=== PATIENT | female | born 1930 | race Caucasian/White ===

== ENCOUNTER 2016-11-15 13:01 | Inpatient (IN) ==
--- NOTE | 2016-11-15 13:26 | Emergency Department Note ---
Arrival - Arrival Chief Complaint: Fall Stated Complaint: FALL ED Nursing Triage Note: PT STATES TRIED TO SIT IN CHAIR-SLIPPED AND FELL TO FLOOR-PT STATES "I FELT LIKE I WAS ABOUT TO PASS OUT" STATES HAD SILILAR EPISODE WITHOUT FALLING LAST NIGHT-DENIES [id number] PRIOR TO FALL -DENIES PAIN-BRYANT'S-SPEECH CLEAR-A/OX3 Mode of Arrival: Stretcher Limitations: No Limitations Source: Patient, EMS, RN Notes Reviewed Time Seen by Provider: 11/15/16 13:06 - History of Present Illness HPI Narrative: History of Present Illness 86-year-old white female presents to ED with: Chief Complaint: "Blacked out" 3, twice last night and one time this a.m., Syncopal episode this a.m. resulted in a fall, so she came to the ER Onset (ago): Just prior to arrival Duration of Episode: "Not long" Prodromal Symptoms: none Witnessed: yes - by son Context: Just stood up, has not had anything to eat or drink today Injuries Sustained Associated with Event: none Current Symptoms: none, back to baseline History: Previous medical history nonsignificant Treatments prior to arrival: none Allergies/Adverse Reactions: Allergies Allergy/AdvReac Type Severity Reaction Status Date / Time No Known Allergies Allergy Unverified 11/15/16 13:17 Home Medications: Home Medications Medication Instructions Recorded Confirmed Type No Known Home Medications [No 11/15/16 11/15/16 History Known Home Medications] Review of System - Review of System 12 point system: reviewed and no additional remarkable complaints except as stated - Review of System Cardiovascular: Absent: chest pain, palpitations, dyspnea on exertion, orthopnea , edema Musculoskeletal: Present: arm pain (Chronic), leg pain (Chronic knee pain) Neurological: Present: as per HPI Medical,Surgical,& Family Hx - Medical History Medical History: noncontributory - Surgical History Reproductive Surgeries: Surgical HX of;: Hysterectomy Exam Physical Examination: - General General appearance: alert, in no apparent distress - Head Head exam: Present: atraumatic, normocephalic, normal inspection - Eye Eye exam: Present: right eye midline, left eye deviated laterally, pt states this is normal for her since eye surgery, PERRL, EOMI. Absent: nystagmus, periorbital swelling, periorbital tenderness - ENT ENT exam: Present: normal exam - Neck Neck exam: Present: normal inspection, full ROM, no tenderness to palpation. Absent: meningismus - Chest Chest inspection: Present: normal inspection, symmetric chest wall rise - Respiratory Respiratory exam: Present: normal lung sounds bilaterally. Absent: rales, rhonchi, wheezes - Cardiovascular Cardiovascular exam: Present: regular rate, normal rhythm, normal heart sounds - Abdominal Exam Abdominal exam: Present: soft, normal bowel sounds - Extremities Exam Extremities exam: Present: normal inspection, full ROM - Back Exam Back exam: Present: normal inspection, full ROM - Neurological Exam Neurological exam: Present: alert, oriented X3, CN II-XII intact, normal gait. Absent: motor sensory deficit, reflexes normal - Expanded Neurological Exam Patient oriented to: Present: person, place, time Cranial nerves: EOM function (II, III, IV, ): Normal, facial sensation (V): Normal, facial palsy (VII): Normal, spinal accessory function (XI): Normal, tongue deviation (XII): Normal Cerebellar function: finger to nose: Normal, heel to roy: Normal Cerebellar function: normal gait Motor strength - LUE: 5/5 Motor strength - RUE: 5/5 Motor strength - LLE: 5/5 Motor strength - RLE: 5/5 Upper motor neuron exam: kathia neglect: Absent bilaterally Sensory exam upper extremity: light touch: Normal Sensory exam lower extremity: light touch: Normal DTR: brachioradialis (L): 2+, brachioradialis (R): 2+, patellar (L): 2+, patellar (R): 2+ Spinal cord function: Absent: saddle anesthesia - Psychiatric Psychiatric exam: Present: normal affect, normal mood - Skin Skin exam: Present: warm, dry, intact, jaundice noted Vital Signs: Vital Signs Temperature 99.2 F 11/15/16 22:58 Pulse Rate 76 11/15/16 22:54 Respiratory Rate 18 11/15/16 22:58 Blood Pressure 112/56 11/15/16 22:58 O2 Sat by Pulse Oximetry 100 11/15/16 18:44 Course Course Narrative: Orthostatic vital signs: Lying: - Consultations Time: 15:10 (Hospitalist service notified of pt presence and status. Will come to admit patient.) Time: 15:30 (Dr. Hyatt here. Will admit patient.) Results - Labs CBC & BMP: 11/15/16 13:57 11/15/16 13:57 Lab Results: I have reviewed the patients labs Labs: Laboratory Tests 11/15/16 11/15/16 13:57 13:57 Total Bilirubin < 0.39 Direct Bilirubin < 0.10 Indirect Bilirubin 0.3 AST 11 ALT 17 Alkaline Phosphatase 60 Troponin I < 0.015 Total Protein 6.1 L Albumin 3.1 L Laboratory Tests 11/15/16 13:57 Urine Color Yellow Urine Appearance Clear Urine pH 5.0 Ur Specific [place] 1.011 Urine Protein Negative Urine Glucose (UA) Negative Urine Ketones Negative Urine Blood Moderate Urine Nitrate Positive H Urine Bilirubin Negative Urine Urobilinogen < 2.0 H Urine Leukocytes Negative Urine WBC 4 Ur Squamous Epith Cells Occasional Amorphous Crystals Occasional Ur Culture Indicated? Results to follow Laboratory Tests 11/15/16 11/15/16 13:57 13:57 Urine Opiates Screen Negative Ur Barbiturates Screen Negative Ur Phencyclidine Scrn Negative U Amphetamine/Methamph Negative U Benzodiazepines Scrn Negative U Cocaine Metab Screen Negative U Cannabinoids Screen Negative Serum Alcohol < 15 L Disposition Clinical Impression: Syncope, Anemia Case discussed with: patient, patient's family Disposition: Still a Patient Time of Disposition: 15:30
--- NOTE | 2016-11-15 13:52 | XRay Report ---
History: Shortness of breath Date: 11/15/2016 Study: Chest x-ray PA and lateral Comparison exam: No previous chest x-ray available The cardiac silhouette is not enlarged. There is no mediastinal mass. There is mild aortic arch calcification. The pulmonary vasculature is not engorged. The lungs are slightly hyperexpanded. There is no acute infiltrate. There are scattered emphysematous changes. There is no pleural effusion. There is osteopenia and mild to moderate thoracic spondylosis. There is moderate hypertrophic degenerative change of either glenohumeral joint. Impression: The lungs are slightly hyperexpanded as can be seen with COPD. No acute process otherwise PROCEDURE INTERPRETED AT [facility] DEPARTMENT OF RADIOLOGY Final Report Signed by: Dr. Janiya Estrada
--- NOTE | 2016-11-15 13:57 | CT Report ---
History: Syncope Date: 11/15/2016 Study: CT head without contrast Comparison exam: No previous similar study available Transaxial CT sections were obtained through the head without IV contrast. This CT exam was performed using one or more the following dose reduction techniques: Automated exposure control, adjustment of the MA and/or KV according to patient size, or use of iterative reconstruction technique. The ventricles are midline in position without evidence of hydrocephalus. There is no mass or parenchymal hemorrhage. There is a moderate amount of patchy ill-defined decreased density in the periventricular white matter without mass effect compatible with changes of small vessel disease. There is no gross CT evidence of acute cortical stroke. There is no extra-axial hematoma. The partially visualized paranasal sinuses and mastoid air cells are clear. There is a small superior rounded bony protuberance from the floor of the left anterior cranial fossa at 7 mm diameter, compatible with small benign osteoma or heavily ossified meningioma. There is no acute abnormality of the calvarium. The partially visualized mastoid air cells and paranasal sinuses are clear. Impression: No acute intracranial process. 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 Janiya Estrada
[2016-11-15 14:04] LABS: Basophils # 0.1 10*3/uL (0.0-0.2); Basophils % 0.4 % (0.0-0.8); Eosinophils # 0.1 10*3/uL (0.0-0.87); Hematocrit 22.2 VOL% (35.7-47.0); Hemoglobin 7.2 GM/DL (12.0-16.0); Immature Granulocytes % 0.6 %; Immature Granulocytes Absolute 0.08 #; Lymphocytes # 2.8 10*3/uL (1.4-4.0); Lymphocytes % 20.9 % (21.3-54.2); Mean Corpuscular HGB Conc 32.4 GM/DL (32-36); Mean Corpuscular Hemoglobin 33 PG (27-34); Mean Corpuscular Volume 101.8 FL (87-102); Mean Platelet Volume 9.4 FL (9.6-12.0); Monocytes # 0.7 10*3/uL (0.11-0.8); Monocytes % 4.9 % (1.7-12.7); Neutrophils # 9.8 10*3/uL (1.4-7.4); Neutrophils % 72.2 % (38.7-73.9); Platelet Count 278 T/CUMM (130-400); Red Blood Count 2.18 MC/CUMM (3.8-5.5); Red Cell Distribution Width 13.4 % (9.3-17.3); White Blood Count 13.6 T/CUMM (4-12)
[2016-11-15 14:16] LABS: Amorphous Crystals,Urine Occasional /HPF (Few); Apearance,Urine CLEAR (Clear); Bilirubin,Urine Negative (Negative); Blood, Urine Moderate mg/dL (Negative); Glucose,Urine (UA) Negative (Negative); Ketones,Urine Negative (Negative); Nitrite,Urine Positive (Negative); Protein,Urine Negative; Squamous Epithelial Cell,Urine Occasional /HPF (0-10); Urine Color Yellow (Yellow); Urine Specific Gravity 1.011 (1.001-1.035); Urine Urobilinogen < 2.0 EU/DL (0.2-1.0); WBC,Urine 4 /HPF (0-6)
[2016-11-15 14:27] LABS: Alanine Aminotransferase 17 U/L (13-56); Albumin 3.1 G/DL (3.4-5.0); Alkaline Phosphatase 60 U/L (45-117); Aspartate Amino Transferase 11 U/L (0-37); Bilirubin,Direct < 0.10 MG/DL (0.0-0.20); Bilirubin,Indirect 0.3 MG/DL (0.0-1.0); Bilirubin,Total < 0.39 MG/DL (0.2-1.0); Total Protein 6.1 G/DL (6.4-8.3)
[2016-11-15 14:32] LABS: Barbiturates Screen,Urine Negative (Negative); Benzodiazepines Screen,Urine Negative (Negative); Cannabinoid Screen,Urine Negative (Negative); Opiate Screen,Urine Negative (Negative); Phencyclidine Screen,Urine Negative (Negative)
[2016-11-15 14:34] LABS: Blood Urea Nitrogen 56 MG/DL (7-18); Calcium 9.9 MG/DL (8.5-10.1); Glucose 135 MG/DL (74-106); Osmolality,Calculated 298.3 MOS/KG (273-304); Potassium 4.2 MMOL/L (3.5-5.1); Sodium 141 MMOL/L (136-145); Troponin I Only < 0.015 NG/ML (0.00-0.045)
[2016-11-15] MEDS ORDERED: ONDANSETRON 4 MG/2 ML VIAL IV PRN (16:03)
--- NOTE | 2016-11-15 16:12 | Hospitalist History & Physical ---
Assessment and Plan (1) Symptomatic anemia Status: Acute Current Visit: Yes (2) Syncope Status: Acute Assessment and plan: Plan for this patient will be admitting her to a monitored bed. We will draw serial H&H's and transfuse as needed. Will go ahead and transfuse 2 units of packed red blood cells. Consult GI for their evaluation. Patient is a fairly active 86-year-old. Also need to start on some antibiotics for urinary tract infection reevaluate patient in the morning and adjust plans appropriate. Current Visit: Yes History of Present Illness Chief complaint: Syncope History of present illness: Ms. Sterling is a 86 year old female who reports no past medical history presents after 2 syncopal episodes. First one occurred yesterday. It occurred when she stood up and everything went black she did not pass out at that time it was more of a near syncopal episode. Today she got up and walked approximately 30 feet at home incompletely when out and hit the floor. Family called EMS and she was brought up. Further evaluation. Patient was found to be severely anemic and I was consulted to admit her. Patient denies any blood in her stool. Discussed CODE STATUS with patient and she would not want to be put on life support. Allergies Allergy/AdvReac Type Severity Reaction Status Date / Time No Known Allergies Allergy Unverified 11/15/16 13:17 Medical,Surgical,& Family Hx - Medical History Medical History: noncontributory (Denies any) - Surgical History Reproductive Surgeries: Surgical HX of;: Hysterectomy - Family History Family History: Reports;: Family Cancer, Family Diabetes - Social History Smoking Status: Never smoker Frequency of Alcohol Use: None Type of Drug Use: None 12 point system: reviewed and no additional remarkable complaints except as stated Exam - Constitutional Vitals: Period Temp Pulse Resp BP Sys/Bhardwaj Pulse Ox Last 24 Hr 98.2 F-98.2 F 104-104 20-20 122-122/72-72 98 General appearance: normal weight, no acute distress - Head Head exam: Present: normal inspection - Eye Eye exam: Present: EOMI Pupils: Present: ERIN - ENT ENT exam: Present: normal exam - Neck Neck exam: Present: other (Mild elevated JVD) - Respiratory Respiratory exam: Present: clear to auscultation bilaterally - Cardiovascular Cardiovascular exam: Present: regular rate and rhythm - GI/Abdominal GI/Abdominal exam: Present: normal bowel sounds - Extremities Exam Extremities exam: Present: normal inspection - Back Exam Back exam: Present: normal inspection - Neurological Exam Neurological exam: Present: alert, oriented X3 - Psychiatric Psychiatric exam: Present: normal affect, normal mood Results - Labs CBC & BMP: 11/15/16 13:57 11/15/16 13:57
[2016-11-15] MEDS ORDERED: ONDANSETRON 4 MG/2 ML VIAL ONE (16:40)
[2016-11-15 16:44] LABS: Vitamin B12 344 PG/ML (211-911)
[2016-11-15] MEDS ORDERED: SODIUM CHLORIDE 0.9% 250 ML IV PRN (17:26)
[2016-11-16 02:28] LABS: Hematocrit 26.4 VOL% (35.7-47.0); Hemoglobin 8.9 GM/DL (12.0-16.0)
[2016-11-16 02:29] LABS: Basophils # 0.1 10*3/uL (0.0-0.2); Basophils % 0.6 % (0.0-0.8); Eosinophils # 0.3 10*3/uL (0.0-0.87); Eosinophils % 3.7 % (0.00-10.9); Hematocrit 26.1 VOL% (35.7-47.0); Hemoglobin 8.9 GM/DL (12.0-16.0); Immature Granulocytes % 0.2 %; Immature Granulocytes Absolute 0.02 #; Lymphocytes % 43.1 % (21.3-54.2); Mean Corpuscular HGB Conc 34.1 GM/DL (32-36); Mean Corpuscular Hemoglobin 31 PG (27-34); Mean Corpuscular Volume 91.6 FL (87-102); Mean Platelet Volume 9.4 FL (9.6-12.0); Monocytes # 0.6 10*3/uL (0.11-0.8); Monocytes % 6.6 % (1.7-12.7); Neutrophils # 4.2 10*3/uL (1.4-7.4); Neutrophils % 45.8 % (38.7-73.9); Platelet Count 184 T/CUMM (130-400); Red Blood Count 2.85 MC/CUMM (3.8-5.5); Red Cell Distribution Width 16.6 % (9.3-17.3); White Blood Count 9.3 T/CUMM (4-12)
[2016-11-16 02:45] LABS: Alanine Aminotransferase 15 U/L (13-56); Albumin 2.8 G/DL (3.4-5.0); Alkaline Phosphatase 52 U/L (45-117); Aspartate Amino Transferase 11 U/L (0-37); Bilirubin,Total < 0.39 MG/DL (0.2-1.0); Blood Urea Nitrogen 46 MG/DL (7-18); Calcium 9.2 MG/DL (8.5-10.1); Glucose 89 MG/DL (74-106); Potassium 4.4 MMOL/L (3.5-5.1); Sodium 143 MMOL/L (136-145)
[2016-11-16 03:38] LABS: Sedimentation Rate-Westergren 17 MM/HR (0-30)
[2016-11-16] MEDS: cefTRIAXone 1,000 MG in SODIUM CHLORIDE 0.9% 100 ML IV SCH (05:07)
[2016-11-16 07:46] LABS: Hematocrit 27.8 VOL% (35.7-47.0); Hemoglobin 9.3 GM/DL (12.0-16.0)
--- NOTE | 2016-11-16 07:48 | EKG Report ---
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
[2016-11-16 08:57] LABS: Hemoglobin A1 (Alkaline) 97.1 % (96.5-98.5); Hemoglobin A2 (Alkaline) 2.9 % (1.5-3.5)
[2016-11-16] MEDS: PANTOPRAZOLE 40 MG TABLET PO SCH (09:11)
--- NOTE | 2016-11-16 09:37 | Ultrasound Report ---
Exam: US carotid duplex BI Date:11/16/2016 7:53 AM Comparison: None Indication: Syncope RIGHT - Peak Velocity Measurements CCA MID: 81 cm/s ICA PROX: 67.7 cm/s ICA DISTAL: 97.7 cm/s ECA: 96.3 cm/s Vertebral: 46.8 cm/s LEFT - Peak Velocity Measurements CCA MID: 79 cm/s ICA PROX: 58.5 cm/s ICA DISTAL: 91.1 cm/s ECA: 71.6 cm/s VERTEBRAL: 79.4 cm/s Findings: Grayscale, spectral Doppler, and color flow analysis performed and interpreted There is a mild amount of soft and partially calcified plaque in both proximal internal carotid arteries There is antegrade flow in both vertebral arteries Peak systolic ratios are 1.2 on the right and 1.1 on the left Impression: Mild amount of plaque with less than 50% diameter stenoses bilaterally by NASCET criteria PROCEDURE INTERPRETED AT [facility] DEPARTMENT OF RADIOLOGY Final Report Signed by: Dr. Maria Antonia Moore
--- NOTE | 2016-11-16 10:10 | Gastrointestinal Consult Note ---
Assessment and Plan (1) Anemia Status: Acute Assessment and plan: 11/16-admitted with syncope and weakness with findings on admission of anemia with hemoglobin 11/20. No known prior history of anemia or blood transfusions in the past. No endoscopy history in the past. Report of melena stools 1 week ago. No other symptoms at present time. Continue to monitor H&H and check stools for occult blood. Plan for tentative EGD tomorrow to further evaluate. Plan an addendum to followed by Dr. Estrada. Current Visit: Yes History of Present Illness Chief complaint: Syncope, anemia History of present illness: Ms. Sterling is a 86 year old female who was admitted to the hospital with 2 day history of syncopal episodes. Patient is a fair historian therefore information is obtained from patient interview as well as chart review. Patient states that she was in her usual state of health until 2 days ago when she began not feeling well. She states that she felt rather weak and when she stood up she felt like she was going to pass out. She states that this happened a couple of times however on yesterday when she got up to walk she became weak and fell hit the floor. An ambulance was called and brought her to the emergency room for further evaluation. Upon admission patient was found to have anemia and was admitted for further workup. Patient does not recall being anemic in the past. She states that she is fairly healthy and active and does not have any complaints other than the new onset weakness. She denies any prior chronic medical conditions and states she has had 9 children in the past and hysterectomy. She does not recall having a blood transfusion in the past. She does state during conversation, that approximately 1 week ago she was constipated and when she finally had a bowel movement she noticed that she had a large dark tarry stool. She states that this was very unusual from her normal pattern. She does report chronic constipation but she relates this to poor appetite and intake. She states that approximately 3 years ago she lost her appetite and began losing weight. She denies any NSAID use. She denies any dysphagia, dyspepsia, GERD, epigastric pain, nausea or vomiting. She denies any hematochezia. She does not recall having any endoscopy in the past and no records noted in our facility database. On admission she was found to have a UTI with gram-positive cocci noted at present time. HH noted on admission at 11/20. She has been transfused 2 units of packed red blood cells and H&H now 01/26. Stools for occult blood are pending at present time. BUN/ creatinine ratio noted to be elevated at 57. Home Medications Medication Instructions Recorded Confirmed Type No Known Home Medications [No 11/15/16 11/15/16 History Known Home Medications] Allergies Allergy/AdvReac Type Severity Reaction Status Date / Time No Known Allergies Allergy Unverified 11/15/16 13:17 Medical,Surgical,& Family Hx - Surgical History Reproductive Surgeries: Surgical HX of;: Hysterectomy - Family History Family History: Reports;: Family Cancer, Family Diabetes - Social History Smoking Status: Never smoker Frequency of Alcohol Use: None Type of Drug Use: None 12 point system: reviewed and no additional remarkable complaints except as stated - Constitutional Constitutional: Present: as per HPI, weakness - EENT Eyes: Present: as per HPI Ears: Present: as per HPI Nose, mouth and throat: Present: as per HPI - Cardiovascular Cardiovascular: Present: as per HPI - Respiratory Respiratory: Present: as per HPI - Gastrointestinal Gastrointestinal: Present: as per HPI, constipation, melena - Genitourinary Genitourinary: Present: as per HPI - Musculoskeletal Musculoskeletal: Present: as per HPI - Neurological Neurological: Present: as per HPI - Psychiatric Psychiatric: Present: as per HPI - Endocrine Endocrine: Present: as per HPI - Hematologic/Lymphatic Hematologic/Lymphatic: Present: as per HPI Exam - Constitutional Vitals: Period Temp Pulse Resp BP Sys/Bhardwaj Pulse Ox Last 24 Hr 97.5 F-99.6 F 74-109 18-20 89-135/47-72 96-100 General appearance: normal weight, no acute distress - Head Head exam: Present: normal inspection, normocephalic - Eye Eye exam: Present: other (lids and conjunctiva unremarkable). Absent: scleral icterus - ENT ENT exam: Present: normal exam, normal oropharynx - Neck Neck exam: Present: normal inspection - Respiratory Respiratory exam: Present: clear to auscultation bilaterally. Absent: rales, rhonchi, wheezes - Cardiovascular Cardiovascular exam: Present: regular rate and rhythm. Absent: diastolic murmur , JVD, systolic murmur - GI/Abdominal GI/Abdominal exam: Present: normal bowel sounds, soft. Absent: ascites, distended, mass, organomegaly, tenderness - Extremities Exam Extremities exam: Present: normal inspection, full ROM - Back Exam Back exam: Present: normal inspection - Neurological Exam Neurological exam: Present: alert, oriented X3 - Psychiatric Psychiatric exam: Present: normal affect, normal mood - Skin Skin exam: Present: normal color, warm, dry Results - Labs CBC & BMP: 11/16/16 07:38 11/16/16 02:11 Lab Results: I have reviewed the past 24 hour labs
--- NOTE | 2016-11-16 12:28 | ECHO Report ---
Teresa Sterling Exam Date: 11/16/2016 09:09 Referring Physician: Technologist: Yesenia Bowles Age: 86 Ht (in): 60 Wt (lb): 105 Gender: F Exam Location: [facility] Echo Indications: symtomatic anemia, syncope, fall BP: 112 / 61 HR: 60 Rhythm: Sinus Technical Quality: Technically difficult study IMPRESSIONS Technically difficult study. Normal left ventricular size and systolic function, left ventricular ejection fraction is estimated at 55-60 %. Mild mitral valve leaflet thickening with trace mitral regurgitation. Mild aortic valve sclerosis without stenosis. Trace to mild tricuspid valve regurgitation. MEASUREMENTS (Male / Female) Normal Values 2D ECHO LV Diastolic Diameter PLAX 2.8 cm 4.2 - 5.9 / 3.9 - 5.3 cm LV Systolic Diameter PLAX 1.9 cm LV Fractional Shortening PLAX 30.1 % IVS Diastolic Thickness 0.8 cm 0.6 - 1.0 / 0.6 - 0.9 cm LVPW Diastolic Thickness 0.9 cm 0.6 - 1.0 / 0.6 - 0.9 cm RV Internal Dim ED PLAX 2.2 cm Aortic Root Diameter 2.5 cm LA Systolic Diameter LX 2.9 cm 3.0 - 4.0 / 2.7 - 3.8 cm DOPPLER TR Peak Velocity 232.0 cm/s TR Peak Gradient 21.5 mmHg FINDINGS Left Ventricle Normal left ventricular size and systolic function, left ventricular ejection fraction is estimated at 55-60 %. Right Ventricle Normal right ventricular size. Right Atrium Normal right atrial size. Left Atrium Normal left atrial size. Mitral Valve Mild mitral valve leaflet thickening with trace mitral regurgitation. Aortic Valve Mild aortic valve sclerosis without stenosis. Tricuspid Valve Morphologically normal tricuspid valve. Trace to mild tricuspid valve regurgitation. Tricuspid regurgitation velocities suggest a PAP of 21.5 mmHg + RAP. Pulmonic Valve Morphologically normal pulmonic valve. Pericardium No pericardial effusion. Aorta Normal size aortic root and proximal ascending aorta. Kin Reddy (Electronically Signed) Final Date: 16 November 2016 12:27
--- NOTE | 2016-11-16 14:15 | Hospitalist Progress Note ---
Assessment and Plan (1) Acute blood loss anemia Status: Acute Assessment and plan: EGD in a.m. Recheck H&H in a.m. Status post 2 unit PRBC transfusion. Current Visit: Yes (2) Upper GI bleeding Status: Acute Current Visit: Yes (3) Syncope Status: Acute Current Visit: Yes Hospitalist: Subjective Interval history: Patient seen and examined. No acute events overnight. Case discussed with nursing staff. Labs reviewed. Echo shows: IMPRESSIONS Technically difficult study. Normal left ventricular size and systolic function, left ventricular ejection fraction is estimated at 55-60 %. Mild mitral valve leaflet thickening with trace mitral regurgitation. Mild aortic valve sclerosis without stenosis. Trace to mild tricuspid valve regurgitation. Carotids without significant stenosis. Patient with acute blood loss anemia secondary to upper gastrointestinal bleeding with melena. 2 units packed red blood cell transfusion completed. Plan for EGD in a.m. Exam - Constitutional Vitals: Period Temp Pulse Resp BP Sys/Bhardwaj Pulse Ox Last 24 Hr 97.5 F-99.6 F 66-86 18-20 105-135/47-71 96-100 Exam: Constitutional System: No distress. No tremulousness. Head: Normocephalic, atraumatic. Ears, Nose and Throat System: No pain or tenderness. No epistaxis or discharge Eyes System: Pupils equal, round, and reactive. Extraocular muscles intact. Neck: Supple, without adenopathy, No jugular venous distention. No thyromegaly, neck mass, or prior surgery apparent. Respiratory System: Chest clear to auscultation. Cardiovascular System: Heart with regular rate and rhythm. No murmur. GI System: Abdomen soft, nontender. Normo active bowel sounds present. Musculoskeletal System: limbs with no pedal edema. Full distal pulses. Neurological System: No discernable sensory deficit. No aphasia Psychiatric System: Conversation is rational Results - Labs CBC & BMP: 11/16/16 07:38 11/16/16 02:11 Lab Results: I have reviewed the past 24 hour labs
[2016-11-17] MEDS: cefTRIAXone 1,000 MG in SODIUM CHLORIDE 0.9% 100 ML IV SCH (04:48)
[2016-11-17] MEDS: PANTOPRAZOLE 40 MG TABLET PO SCH ×2 (08:30→22:03)
--- NOTE | 2016-11-17 10:30 | Hospitalist Progress Note ---
Assessment and Plan (1) Acute blood loss anemia Status: Acute Assessment and plan: EGD today. Recheck H&H in a.m. Status post 2 unit PRBC transfusion. Current Visit: Yes (2) Upper GI bleeding Status: Acute Current Visit: Yes (3) Syncope Status: Acute Current Visit: Yes Hospitalist: Subjective Interval history: Patient seen and examined. No acute events overnight. Case discussed with nursing staff. Labs reviewed. EGD planned for this morning. She denies any further bleeding. H&H stable. Exam - Constitutional Vitals: Period Temp Pulse Resp BP Sys/Bhardwaj Pulse Ox Last 24 Hr 97.1 F-99.5 F 66-76 16-18 105-120/51-58 97-100 Exam: Constitutional System: No distress. No tremulousness. Head: Normocephalic, atraumatic. Ears, Nose and Throat System: No pain or tenderness. No epistaxis or discharge Eyes System: Pupils equal, round, and reactive. Extraocular muscles intact. Neck: Supple, without adenopathy, No jugular venous distention. No thyromegaly, neck mass, or prior surgery apparent. Respiratory System: Chest clear to auscultation. Cardiovascular System: Heart with regular rate and rhythm. No murmur. GI System: Abdomen soft, nontender. Normo active bowel sounds present. Musculoskeletal System: limbs with no pedal edema. Full distal pulses. Neurological System: No discernable sensory deficit. No aphasia Psychiatric System: Conversation is rational Results - Labs CBC & BMP: 11/16/16 07:38 11/16/16 02:11 Lab Results: I have reviewed the past 24 hour labs
[2016-11-17] MEDS ORDERED: PROPOFOL 200 MG/20 ML VIAL IV ONE (12:56)
[2016-11-17] MEDS ORDERED: LIDOCAINE 2% 5 ML VIAL ONE (12:56)
--- NOTE | 2016-11-17 13:02 | History and Physical Update ---
History and Physical Update - History and Physical H&P was reviewed, the patient examined and there: are no changes in the patients condition since last H&P was completed. - Physical Exam Mental Status: alert and oriented Heart: regular rate and rhythm Lung: clear to auscultation Abdomen: within normal limits Vitals: within normal limits
--- NOTE | 2016-11-17 13:15 | Operative Note ---
Date of procedure: 11/17/16 Pre-op diagnosis: GI bleed with melena Post-op diagnosis: other (Gastric ulcer) Procedure: Procedure: Esophagogastroduodenoscopy with biopsies gastric ulcer Brief clinical abstract: Patient is an 86-year-old female admitted with symptomatic anemia with hemoglobin 7 and recent melena. She has had transfusion of 2 units packed red blood cells. Patient has been stable without active bleeding for over 24 hours. Indication for procedure: GI bleed with melena Endoscopic findings:[After informed consent was obtained, the patient was placed in the left lateral decubitus position. The gastroscope was inserted in the upper esophagus under direct vision with no resistance encountered. Esophageal mucosa appeared normal with squamocolumnar junction sharply demarcated at the diaphragmatic indentation. The endoscope was advanced in the stomach which was carefully examined including retroflexed view of the cardia and fundus. Along the mid lesser curve near the incisura was an approximately 1.5 cm diameter white based ulcer. No visible vessel was associated with this. Several biopsies were obtained from the margin base of the ulcer for pathologic examination. The pyloric channel, duodenal bulb, second and third portion of the duodenum were normal. The endoscope was withdrawn and patient appeared to tolerate the procedure well. Impression: Gastric ulcer-appearance suggests low risk of significant further bleeding Recommendations: Continue twice daily PPI therapy. Advance diet and could probably discharge soon if tolerates. Ask about nonsteroidal use at home and have her discontinue if taking. Anesthesia: MAC Surgeon / Physician: Craig Estrada Estimated blood loss: none Specimens: none sent Condition: stable Disposition: post procedure unit Results - Labs CBC & BMP: 11/16/16 07:38 11/16/16 02:11 Discharge Plan - Discharge Medications No Action No Known Home Medications [No Known Home Medications] - Follow Up or Referral - Forms/Instructions
--- NOTE | 2016-11-17 13:21 | Anesthesia Post-Op ---
Anesthesia Post OP - Post Ansesthetic Evaluation Patient seen in post op: Yes Resp: within normal limits CV: within normal limits Mental: within normal limits Temp: within normal limits Vaif-[id number]: within normal limits Nausea and Vomiting: within normal limits Pain: within normal limits
[2016-11-18] MEDS: cefTRIAXone 1,000 MG in SODIUM CHLORIDE 0.9% 100 ML IV SCH (06:18)
[2016-11-18 08:01] VITALS: BP 192/62
[2016-11-18] MEDS ORDERED: CIPROFLOXACIN 500 MG TABLET PO SCH (09:00)
[2016-11-18] MEDS: PANTOPRAZOLE 40 MG TABLET PO SCH (09:13)
--- NOTE | 2016-11-18 09:33 | Gastrointestinal Progress Note ---
Assessment and Plan (1) Anemia Status: Acute Assessment and plan: 11/18-EGD findings noted with gastric ulcer at GE junction. Tolerating diet at present time. Denies any overt bleeding. Recheck H&H. Will need to continue on Protonix upon discharge. Plan an addendum follow Dr. Estrada. 11/16-admitted with syncope and weakness with findings on admission of anemia with hemoglobin 11/20. No known prior history of anemia or blood transfusions in the past. No endoscopy history in the past. Report of melena stools 1 week ago. No other symptoms at present time. Continue to monitor H&H and check stools for occult blood. Plan for tentative EGD tomorrow to further evaluate. Plan an addendum to followed by Dr. Estrada. Current Visit: Yes Gastroenterology - PN: Subj Interval history: CC: GI bleed Patient is awake and alert sitting up in bed. States she is feeling better today. She denies any abdominal pain, nausea or vomiting. Denies any overt bleeding at this time. Abdomen is soft, nontender. EGD findings noted on yesterday with gastric ulcer with low risk of significant further bleeding. She is tolerating her diet advancement. We will recheck H&H today. Discussed with patient NSAID use and she denies any prior use of this. Discussed with her that Tylenol is the safest option if she needs to take something for pain. ROS: Denies shortness of breath or chest pain Exam (Progress Note) - Constitutional Vitals: Period Temp Pulse Resp BP Sys/Bhardwaj Pulse Ox Last 24 Hr 98 F-99.0 F 57-73 15-18 91-192/50-69 96-100 General appearance: normal weight, no acute distress - Head Head exam: Present: normal inspection, normocephalic - Eye Eye exam: Present: other (Lids and conjunctivae are unremarkable). Absent: scleral icterus - ENT ENT exam: Present: normal exam, normal oropharynx - Neck Neck exam: Present: normal inspection - Respiratory Respiratory exam: Present: clear to auscultation bilaterally. Absent: rales, rhonchi, wheezes - Cardiovascular Cardiovascular exam: Present: regular rate and rhythm. Absent: diastolic murmur , JVD, systolic murmur - GI/Abdominal GI/Abdominal exam: Present: normal bowel sounds, soft. Absent: ascites, distended, mass, organomegaly, tenderness - Extremities Exam Extremities exam: Present: normal inspection, full ROM - Back Exam Back exam: Present: normal inspection - Neurological Exam Neurological exam: Present: alert, oriented X3 - Psychiatric Psychiatric exam: Present: normal affect, normal mood - Skin Skin exam: Present: normal color, warm, dry Results - Labs CBC & BMP: 11/16/16 07:38 11/16/16 02:11 Lab Results: I have reviewed the past 24 hour labs
--- NOTE | 2016-11-18 09:35 | Discharge Summary ---
Hospital Course - Hospital Course Hospital Course: 86-year-old female admitted to the hospital with dizziness and weakness with heme positive stools and symptomatic anemia. She was seen in consultation by gastroenterology and underwent an EGD showing gastric ulcer. She was started on Protonix twice daily and this was continued upon discharge. The patient was also found to have urinary tract infection sensitive to ciprofloxacin. She had no adverse events during the course of the hospitalization. 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 She is advised to continue the Protonix twice daily for the next several months. She was given prescriptions for Protonix and Cipro, they were electronically prescribed to the [facility]. - Time spent with patient Time with patient DS: Less than 30 minutes Diagnosis - Discharge Diagnosis (1) Acute blood loss anemia Status: Resolved (2) Upper GI bleeding Status: Resolved (3) Syncope Status: Resolved (4) UTI (urinary tract infection) Status: Acute (5) Gastric ulcer Status: Acute Specialty Discharge - Follow Up or Referrals Follow up with: Craig Estrada MD [Physician] - Discharge Plan - Discharge Data Disposition: Disch To Home/Self Care Condition at Discharge: Stable Discharge Diet: advance to your usual diet Activity: resume usual activities as tolerated Hygiene: no restrictions Weight Bearing at Discharge: full weight bearing Driving: no restrictions Contact your physician if you experience:: fever over 101, Difficulty voiding, Nausea/Vomiting, Bleeding - Discharge Medications New Ciprofloxacin Tab [Cipro Tab] 500 mg PO Q12HR #14 tablet Pantoprazole Tab [Protonix Tab] 40 mg PO BID #60 tablet - Follow Up or Referral Follow Up: Craig Estrada MD [Physician] - - Forms/Instructions Exam - Constitutional Vitals: Period Temp Pulse Resp BP Sys/Bhardwaj Pulse Ox Last 24 Hr 98 F-99.0 F 57-73 15-18 91-192/50-69 96-100 Discharge Results Procedures and tests throughout hospitalization: Pending Orders 11/16/16 22:00 Occult Blood, Stool Routine 11/18/16 09:33 HH [Hemoglobin and Hematocrit] Routine Labs on day of discharge: Labs from last 24 hours 11/17/16 16:03 POC Glucose 153 H DS: Provider Date of admission: 11/15/16 15:23 Primary care physician: . No PCP Attending physician on admission: Marge Powell MD Consults: 11/15/16 16:03 Consult to Physician [CONS] Routine Comment: anemia Consulting Provider: Craig Estrada Consult to Specialist Group: Gastroenterology When should Consulting Provider be notified: In am Person Notified: Naomi Date Notified: 11/16/16 Time Notified: 10:45 11/15/16 17:14 Consult to Dietitian [CONS] Routine Reason for Dietitian: Diet Recommendations Discharging clinician: Marge Powell MD Expected date of discharge: 11/18/16
[2016-11-18 09:51] LABS: Hematocrit 26.2 VOL% (35.7-47.0); Hemoglobin 8.7 GM/DL (12.0-16.0)
--- NOTE | 2016-11-18 13:30 | Pathology Report from [facility] ---
[facility] ACCESSION # : [id number] PATIENT NAME : Teresa Sterling ORDERING DR : BART HINES MD CLINICAL HX: Anemia POST-OP DX: Gastric ulcer SPECIMEN INFO: Gastric biopsy GROSS DESCRIPTION: Received in formalin unlabeled and consists of a 0.5 x 0.4 cm aggregate of connell tissue. Submitted in one cassette. DIAGNOSIS FOR TERESA STERLING: STOMACH BIOPSY: Chronic superficial gastritis. No evidence of malignancy. H. pylori not seen on H&E or special stain with appropriate control. COLLECTED DATE: 11/17/2016 [facility] REPORT DATE: 11/18/2016 ELECTRONICALLY SIGNED BY: Anjelica Wan III, M.D. 11/18/2016 - 11:50:23 [facility]
== END 2016-11-18 11:55 | disposition home or self-care (01) | DRG 812 ==
LOC: N.ED 13:01 → N.EDINP 15:23 → N.TELEN 17:02
PROVIDERS: ADMIT Family Medicine; ATTEND Family Medicine